=== PATIENT | female | born 1960 | race Caucasian/White ===

== ENCOUNTER → 2018-02-20 13:33 | Outpatient (CLI) | payer BC, SELFPAY ==
--- NOTE | 2018-02-20 | DI.MG.S_ITS ---
BILATERAL DIGITAL SCREENING MAMMOGRAM 3D/2D WITH CAD WITH AUGMENTATION: 02/20/2018 CLINICAL: Routine screening. Family history of breast cancer. Personal history of breast cancer. Comparison is made to exams dated: 12/31/2016 mammogram, 12/27/2015 mammogram, and 12/20/2014 mammogram - [facility]. The tissue of both breasts is heterogeneously dense. This may lower the sensitivity of mammography. Current study was also evaluated with a Computer Aided Detection (CAD) system. There are post operative findings in the right breast. Bilateral breast implants appear stable. No significant masses, calcifications, or other findings are seen in either breast. There has been no significant interval change. IMPRESSION: NEGATIVE There is no mammographic evidence of malignancy. A 1 year screening mammogram is recommended. This exam was interpreted at Station ID: [id number]. NOTE: For mammograms, a report in lay terms will be sent to the patient. Approximately 15% of breast malignancies will not be visualized mammographically. In the management of a palpable breast mass, a negative mammogram must not discourage biopsy of a clinically suspicious lesion. Electronically Signed By: Mejia Adams M.D. ecl/:02/22/2018 21:47:15 copy to: Catherine Angeles PA-C letter sent: Normal Exam ACR BI-RADS Category 1: Negative 3341F
== END ==
PROVIDERS: Family Provider Family Medicine; PCP Family Medicine; Visit Provider Family Medicine
DX: Z12.31 Encounter for screening mammogram for malignant neoplasm of breast (principal); Z85.3 Personal history of malignant neoplasm of breast; Z80.3 Family history of malignant neoplasm of breast
CPT/HCPCS: 77063; 77067

== ENCOUNTER 2018-12-24 13:03 | Day surgery (SDC) | payer BC, SELFPAY ==
[2018-12-24 13:54] VITALS: BP 108/71; PULSE 75; RESP 16; TEMP 36.4; O2SAT 99
[2018-12-24] MEDS: SODIUM CHLORIDE 0.9% 1,000 ML 200 ML IV (13:54)
[2018-12-24 13:56] VITALS: BMI 21.0
--- NOTE | 2018-12-24 13:58 | PM.HP.1 ---
History of Present Illness Date Patient Seen: 12/24/18 Time Patient Seen: 13:58 Chief complaint: [id number] Narrative: Pleasant and otherwise healthy 58 yo F presents for diagnostic colonoscopy after a positive cologuard test. She had a clear colonoscopy at age 48 and just did the cologuard for the first time as a co-worker had a recent colonoscopy and had a perforation. She has a history of early breast cancer and is otherwise quite healthy. No family history nor alarm symptoms in patient. She is anxious about the test results and procedure and has many appropriate questions. Patient History Medical History Rosacea (Chronic) Breast cancer (Resolved) Surgical History History of ear surgery (Resolved) Meds Home Medications Medication Instructions Recorded Confirmed Type doxycycline hyclate 50 mg capsule 50 mg PO BID 10/28/18 10/28/18 History multivitamin tablet 1 tab PO DAILY 10/28/18 10/28/18 History Allergies Allergy/AdvReac Type Severity Reaction Status Date / Time No Known Drug Allergies Allergy Verified 12/24/18 08:53 Review of Systems Constitutional Constitutional: Reports as per HPI Exam Vital Signs (past 8 hours): - 12/24/18 13:54 Temperature 97.6 F Pulse Rate 75 Respiratory Rate 16 Blood Pressure 108/71 Pulse Oximetry 99 Oxygen Delivery Method Room Air Narrative Exam Narrative: AAO, NAD, female of healthy weight EOMI, MMM, no scleral icterus unlabored RA soft, nt/nd MAEW visible skin dry and intact Assessment & Plan (1) Positive FIT (fecal immunochemical test): Current visit: Yes Status: Acute Assessment & Plan narrative: - diagnostic colonoscopy --> all R/B/A discussed and pt wishes to proceed
[2018-12-24] MEDS: fentaNYL 250 MCG/5 ML INJ IV (15:15)
[2018-12-24] MEDS: MIDAZOLAM 5 MG/5 ML VIAL IV (15:17)
[2018-12-24 15:19] VITALS: BP 108/62; PULSE 66; RESP 13; TEMP 36.6; O2SAT 100
[2018-12-24 15:24] VITALS: BP 100/63; PULSE 67; RESP 14; O2SAT 100
[2018-12-24 15:29] VITALS: BP 104/63; PULSE 62; RESP 18; O2SAT 100
--- NOTE | 2018-12-24 15:29 | P.OP.ENDO_ITS ---
Operative Date/Time/Diagnoses Date of procedure: 12/24/18 Time of procedure: 15:27 Pre-op diagnosis: Positive cologuard Post-op diagnosis: same Procedure & Clinicians Study performed: Diagnostic Colonoscopy Same procedure as scheduled: Yes Indications: 58yo F with positive screening test. No family history nor symptoms. Surgeon: Danita Gilbert Procedure Notes SCOAP/Timeout: 1415 Procedure in detail: After obtaining informed consent, the patient was brought to the GI suite and placed in the left lateral decubitus position on the examination table. After placement of appropriate monitors, the patient was given incremental doses of Versed and Fentanyl until an appropriate level of sedation was achieved. A time out was held per SCOAP protocol. A digital rectal examination was performed and did not reveal any masses or obstructing lesions but small external hemorrhoids are noted. The pediatric colonoscope (used for patient's small size) was gently passed into the patient's anus and the entire colon navigated to the level of the cecum with difficulty due to a very tortuous colon. Maneuvers including abdominal pressure, supine positioning, and stiffener were employed. Prep was adequate. Once in the ce cum, the scope was slowly withdrawn being sure to go before and beyond all mucosal folds and prominences as able to get a thorough examination. No masses or polyps are noted. No other abnormal findings. At the level of the rectal vault, the scope was retroflexed and the internal anal canal was examined. The scope was straightened and air aspirated from the colon. The instrument was removed from the patient's body and the procedure was concluded. The patient was allowed to awaken from sedation without difficulty and taken to the post-anesthesia care unit in good condition. Scope withdrawal time: 11 min Sedation minutes: 58 Specimen(s): none sent Complications: none Impression: Tortuos colon No abnormal mucosa seen Recommendations: Colonscopy in 5 years Follow up: weeks Disposition: PACU
[2018-12-24 15:35] VITALS: BP 102/62; PULSE 80; RESP 16; TEMP 36.6; O2SAT 99
[2018-12-24 15:49] VITALS: BP 115/74; PULSE 69; RESP 15; TEMP 36.2; O2SAT 100
== END 2018-12-24 15:50 | disposition home or self-care (01) ==
PROVIDERS: PCP Family Medicine; Visit Provider Surgery
PROC: 0DJD8ZZ Inspection of Lower Intestinal Tract, Via Natural or Artificial Opening Endoscopic (ICD-10-PCS; CPT 45378; principal; 2018-12-24 15:00)
DX: R19.5 Other fecal abnormalities (principal)
CPT/HCPCS: 45378; 99152; 99153; J2250; J3010

== ENCOUNTER → 2019-03-05 14:36 | Outpatient (CLI) | payer BC, SELFPAY ==
--- NOTE | 2019-03-05 | DI.MG.S_ITS ---
BILATERAL DIGITAL SCREENING MAMMOGRAM 3D/2D WITH CAD POST LUMPECTOMY WITH AUGMENTATION: 03/05/2019 CLINICAL: Routine screening. Personal history of right breast cancer. Family history of breast cancer. Comparison is made to exams dated: 02/20/2018 mammogram, 12/31/2016 mammogram, and 12/27/2015 mammogram - [facility]. The tissue of both breasts is heterogeneously dense. This may lower the sensitivity of mammography. Current study was also evaluated with a Computer Aided Detection (CAD) system. Bilateral breast implants are stable. There are benign post operative findings in the right breast. No significant masses, calcifications, or other findings are seen in either breast. There has been no significant interval change. IMPRESSION: There is no mammographic evidence of malignancy. A 1 year screening mammogram is recommended. This exam was interpreted at Station ID: [id number]. NOTE: For mammograms, a report in lay terms will be sent to the patient. Approximately 15% of breast malignancies will not be visualized mammographically. In the management of a palpable breast mass, a negative mammogram must not discourage biopsy of a clinically suspicious lesion. Electronically Signed By: Zara gonzalez/kyle:03/05/2019 15:22:52 copy to: Catherine Angeles PA-C letter sent: Normal Exam ACR BI-RADS Category 2: Benign Finding(s) 3342F
== END ==
PROVIDERS: Visit Provider Family Medicine
DX: Z12.31 Encounter for screening mammogram for malignant neoplasm of breast (principal); Z85.3 Personal history of malignant neoplasm of breast; Z80.3 Family history of malignant neoplasm of breast
CPT/HCPCS: 77063; 77067

== ENCOUNTER → 2020-03-17 15:57 | Outpatient (CLI) | payer OTHER, SELFPAY ==
--- NOTE | 2020-03-17 | DI.MG.S_ITS ---
BILATERAL DIGITAL SCREENING MAMMOGRAM 3D/2D WITH CAD POST LUMPECTOMY WITH AUGMENTATION: 03/17/2020 CLINICAL: Routine screening. Personal history of right breast cancer. Comparison is made to exams dated: 03/05/2019 mammogram, 02/20/2018 mammogram, and 12/31/2016 mammogram - [facility]. The tissue of both breasts is heterogeneously dense. This may lower the sensitivity of mammography. Current study was also evaluated with a Computer Aided Detection (CAD) system. Bilateral breast implants are stable. There are benign post operative findings in the right breast. No significant masses, calcifications, or other findings are seen in either breast. There has been no significant interval change. IMPRESSION: BENIGN There is no mammographic evidence of malignancy. A 1 year screening mammogram is recommended. This exam was interpreted at Station ID: [id number]. NOTE: For mammograms, a report in lay terms will be sent to the patient. Approximately 15% of breast malignancies will not be visualized mammographically. In the management of a palpable breast mass, a negative mammogram must not discourage biopsy of a clinically suspicious lesion. Electronically Signed By: Zara gonzalez/kyle:03/17/2020 16:24:28 copy to: Catherine Angeles PA-C letter sent: Normal Exam ACR BI-RADS Category 2: Benign Finding(s) 3342F
== END ==
PROVIDERS: PCP Registered Nurse; Referring Provider Registered Nurse; Visit Provider Registered Nurse
DX: Z12.31 Encounter for screening mammogram for malignant neoplasm of breast (principal); Z85.3 Personal history of malignant neoplasm of breast
CPT/HCPCS: 77063; 77067

== ENCOUNTER 2020-05-20 11:57 | Emergency (ER) | payer OTHER, SELFPAY ==
[2020-05-20 12:09] VITALS: BP 186/83; PULSE 105; RESP 18; TEMP 36.7; O2SAT 97; BMI 22.4
--- NOTE | 2020-05-20 12:17 | ED.WOUNDLAC ---
HPI - Wound/Laceration General Chief Complaint: Wound/Laceration Stated Complaint: Rt hand laceration Time Seen by Provider: 05/20/20 12:09 History of Present Illness HPI narrative: 59-year-old woman with no significant medical issues was out playing with her 11-year-old Labrador retriever when both of them went to grab the Frisbee and the dogs incisor slashed the dorsum of patient's right hand. Immediate bleeding, some pain, able to move all fingers appropriately. Related Data Home Medications Medication Instructions Recorded Confirmed doxycycline hyclate 50 mg capsule 50 mg PO BID 10/28/18 05/20/20 multivitamin 1 tab PO DAILY 10/28/18 12/24/18 Previous Rx's Medication Instructions Recorded amoxicillin-pot clavulanate 1 tab PO BID #20 tab 05/20/20 hydrocodone-acetaminophen 1 tab PO Q6H PRN #10 tab 05/20/20 Allergies Allergy/AdvReac Type Severity Reaction Status Date / Time No Known Drug Allergies Allergy Verified 05/20/20 12:22 Review of Systems Review of Systems Narrative: Pertinent positive and negative findings as per HPI Remainder of review of systems is otherwise unremarkable for Constitutional: Fevers, chills, weakness ENT: No sore throat, neck pain, ear pain CV: Chest pain, palpitations, dyspnea on exertion Respiratory: Cough, wheeze, dyspnea GI: Nausea, vomiting, diarrhea, : Dysuria, hematuria, flank pain MS: Muscle weakness, numbness, joint swelling or warmth Patient History Medical History Breast cancer Rosacea Surgical History History of ear surgery Social History household members: none Smoking Status: Never smoker Exam Narrative Exam Narrative: General: Alert appropriate in no acute distress Respiratory: Able to speak in full sentences, no obvious respiratory distress Skin: No obvious rashes, warm and dry Neurologic: Grossly intact no obvious asymmetries or abnormalities Psych, appropriate insight and affect, cooperative Extremity: 4.5 cm laceration the dorsum of the right hand. Tendon sheath exposed for the 3rd finger but wound does not include the tendon itself. She has full sensation and strength in all fingers and good capillary refill in all fingers. The palmar surface of the hand is not involved. Initial Vital Signs Initial Vital Signs: Vital Signs Temperature 98.0 F 05/20/20 12:09 Pulse Rate 105 H 05/20/20 12:09 Respiratory Rate 18 05/20/20 12:09 Blood Pressure 186/83 H 05/20/20 12:09 Pulse Oximetry 97 05/20/20 12:09 Procedures Laceration Repair Laceration 1: Site: hand Side (If applicable): right Size (cm): 4.5 Description: flap Depth: simple, single layer Local Anesthetic: lidocaine 1% and with bicarb Amount of anesthesia used (mL): 8 Pre-repair: wound explored, irrigated extensively and deep structures intact Skin layer closed with: nylon Size (cm): 4-0 Number of sutures: 8 Technique: simple, interrupted and horizontal mattress Course Orders Ordered: Discontinued Medications Acetaminophen (Acetaminophen 325 Mg Tablet) 325 mg PO NOW ONE Stop: 05/20/20 12:15 Last Admin: 05/20/20 12:34 Dose: 325 mg Documented by: MARY JANE Amoxicillin/Clavulanate Potassium (Amoxicillin/Clav 875/125 Mg) 1 tab PO NOW ONE Stop: 05/20/20 13:00 Last Admin: 05/20/20 13:11 Dose: 1 tab Documented by: TIMI Bacitracin (Bacitracin Oint 0.9 Gm Pckt) 5 applic TOP NOW ONE Stop: 05/20/20 12:15 Last Admin: 05/20/20 12:36 Dose: 5 applic Documented by: MARY JANE Diphtheria/Tetanus/Acell Pertussis (Tet,Diph,Pertuss(Acell),Vac/Pf 0.5 Ml Syringe) 0.5 ml IM .ONCE ONE Stop: 05/20/20 12:15 Last Admin: 05/20/20 12:37 Dose: 0.5 ml Documented by: MARY JANE Ibuprofen (Ibuprofen 400 Mg Tablet) 400 mg PO NOW ONE Stop: 05/20/20 12:15 Last Admin: 05/20/20 12:34 Dose: 400 mg Documented by: MARY JANE Lidocaine/Sodium Bicarbonate (Lido 1%/Sod Bicarb 8.4% (10ml) 10 Ml Syringe) 10 ml INJ NOW ONE Stop: 05/20/20 12:15 Last Admin: 12/05/20 12:36 Dose: 10 ml Documented by: MARY JANE Vital Signs Vital signs: Vital Signs - 8 hr 05/20/20 12:09 05/20/20 13:15 Temperature 98.0 F Pulse Rate 105 H 85 Respiratory Rate 18 15 Blood Pressure 186/83 H 138/82 Pulse Oximetry 97 98 MDM - Wound/Laceration MDM Narrative Medical decision making narrative: 59-year-old woman with a dog bite to the back of her hand, it was her dog and an accidental in counter. Tetanus status is updated. The wound itself does go to the level of the tendon sheaths but does not involve the tendons themselves. There is no strength or nerve deficit appreciated in the fingers. There was a bit of debris in the wound (dirt and grass), the wound was extensively irrigated. Sutured without complication. First dose Augmentin is given in the emergency department and explain the need to continue Augmentin. Clearly reviewed signs and symptoms of infection including deep hand infections and tendon sheath infections. Strongly recommended that she follow-up with Dr. Pop, hand surgeon for evaluation of wound and removal of sutures. Discharge Plan Departure Patient Disposition: Home Clinical Impression: Dog bite Qualifiers: Encounter type: initial encounter Qualified Code(s): W54.0XXA - Bitten by dog, initial encounter Instructions: DI for Laceration Repair, DI for Dog Bite Activity Restrictions/Additional Instructions: Thank you for coming in today Your wound which back together nicely. It was moderately deep and there is significant risk for infection to develop. I irrigated thoroughly to try and avoid any infection and do want you to finish 7 days of Augmentin , and antibiotic, to prevent infection. If you notice that the hand is increasingly red, your having more pain in moving her fingers or up your forearm, more swelling or any overall fevers you do need to have the hand re-evaluated. Because it does involve your dominant hand and was a fairly significant wound I am going to recommend that you follow-up with our hand surgeon in about 7 days to have the sutures removed and have him evaluate the wound. Please call to schedule an appointment Using 400 mg of ibuprofen (2 [id number] pills) and 1 Tylenol every 6 hours can be very helpful in controlling pain. For severe pain you can use 400 mg of ibuprofen and 1 [place]. Using narcotics can cause constipation so make sure you increase fiber and fluid. Prescriptions have been electronically transmitted to [facility] in [place] for you I hope you heal quickly Prescriptions: New amoxicillin-pot clavulanate 1,000-62.5 mg tablet extended release 12 hr 1 tab PO BID Qty: 20 RF: 0 hydrocodone-acetaminophen 5-300 mg tablet 1 tab PO Q6H PRN (Reason: pain) Qty: 10 RF: 0 No Action doxycycline hyclate 50 mg capsule 50 mg PO BID RF: 0 multivitamin tablet 1 tab PO DAILY RF: 0 Referrals: Jinny Saeed, SHANK TURNER-C [Primary Care Provider] - Sky Pop MD [Physician] -
[2020-05-20] MEDS: ACETAMINOPHEN 325 MG TABLET PO (12:34)
[2020-05-20] MEDS: IBUPROFEN 400 MG TABLET PO (12:34)
[2020-05-20] MEDS: LIDO 1%/SOD BICARB 8.4% (10ML) 10 ML SYRINGE INJ (12:36)
[2020-05-20] MEDS: BACITRACIN OINT 0.9 GM PCKT 5 APPLIC TOP (12:36)
[2020-05-20] MEDS: TET,DIPH,PERTUSS(ACELL),VAC/PF 0.5 ML SYRINGE IM (12:37)
[2020-05-20] MEDS: AMOXICILLIN/CLAV 875/125 MG 1 TAB PO (13:11)
[2020-05-20 13:15] VITALS: BP 138/82; PULSE 85; RESP 15; O2SAT 98
== END 2020-05-20 13:16 | disposition home or self-care (01) ==
PROVIDERS: Emergency Provider Emergency Medicine; PCP Registered Nurse
DX: S61.411A Laceration without foreign body of right hand, initial encounter (principal); W54.0XXA Bitten by dog, initial encounter; Z23 Encounter for immunization
CPT/HCPCS: 12002; 90471; 99282; 99283; 90715

== ENCOUNTER → 2021-03-21 16:12 | Outpatient (CLI) | payer OTHER, SELFPAY ==
--- NOTE | 2021-03-21 | DI.MG.S_ITS ---
BILATERAL DIGITAL SCREENING MAMMOGRAM 3D/2D WITH CAD POST LUMPECTOMY WITH AUGMENTATION: 03/21/2021 CLINICAL: Routine screening. Breast cancer. Comparison is made to exams dated: 03/17/2020 mammogram, 03/05/2019 mammogram, and 02/20/2018 mammogram - [facility]. The tissue of both breasts is heterogeneously dense. This may lower the sensitivity of mammography. Current study was also evaluated with a Computer Aided Detection (CAD) system. Bilateral breast implants are stable. There are benign post operative findings in the right breast. No significant masses, calcifications, or other findings are seen in either breast. There has been no significant interval change. IMPRESSION: BENIGN There is no mammographic evidence of malignancy. A 1 year screening mammogram is recommended. This exam was interpreted at Station ID: [id number]. NOTE: For mammograms, a report in lay terms will be sent to the patient. Approximately 15% of breast malignancies will not be visualized mammographically. In the management of a palpable breast mass, a negative mammogram must not discourage biopsy of a clinically suspicious lesion. Electronically Signed By: Lew fitzgerald/kyle:03/22/2021 08:37:42 letter sent: Normal Exam ACR BI-RADS Category 2: Benign Finding(s) 3342F
== END ==
PROVIDERS: PCP Registered Nurse; Referring Provider Registered Nurse; Visit Provider Registered Nurse
DX: Z12.31 Encounter for screening mammogram for malignant neoplasm of breast (principal); Z85.3 Personal history of malignant neoplasm of breast
CPT/HCPCS: 77063; 77067